=== PATIENT | male | born 1965 | race Caucasian/White ===

== ENCOUNTER 2017-08-31 12:41 | Day surgery (SDC) | payer OTHER ==
[~2017-08-31 12:41] MED LIST: BUPIVACAINE 0.25%/EPI (MDV) 50 ML VIAL INJ
[2017-08-31] MEDS ORDERED: CEFAZOLIN 2 GM/50 ML (PMX) 50 ML IVPB (15:00)
[2017-08-31] MEDS ORDERED: SOD CHLORIDE 0.9% 1,000 ML IV (15:00)
[2017-08-31] MEDS ORDERED: MIDAZOLAM 1 MG/ML 2 ML INJ (16:24)
[2017-08-31] MEDS ORDERED: PROPOFOL 20 ML (16:24)
[2017-08-31] MEDS ORDERED: ROCURONIUM 50 MG INJ (16:24)
[2017-08-31] MEDS ORDERED: CEFAZOLIN 1 GM INJ (16:24)
[2017-08-31] MEDS ORDERED: ROPIVACAINE 0.5 % 30 ML VIAL (16:26)
[2017-08-31] MEDS ORDERED: EPHEDrine SULFATE 50 MG/5 ML SYG IV (16:30)
[2017-08-31] MEDS ORDERED: ONDANSETRON 4 MG INJ IV ×2 (16:30→20:00)
[2017-08-31] MEDS ORDERED: hydrALAzine 20 MG INJ IV (16:30)
[2017-08-31] MEDS ORDERED: FENTAnyl 50 MCG/ML VIAL IV ×3 (16:30)
[2017-08-31] MEDS ORDERED: HYDROmorphONE (0.2 MG/ML) 10ML SYG IV ×3 (16:30)
[2017-08-31] MEDS ORDERED: LABETALOL HCL 20MG INJ IV (16:30)
[2017-08-31] MEDS ORDERED: METOCLOPRAMIDE 10 MG INJ IV (16:30)
[2017-08-31] MEDS ORDERED: MEPERIDINE 25 MG INJ IV (16:30)
[2017-08-31] MEDS ORDERED: OXYCODONE/ACETAMINOPHEN (5/325) TAB PO ×2 (16:30)
[2017-08-31] MEDS ORDERED: DIPHENHYDRAMINE 50 MG INJ IV (16:30)
[2017-08-31] MEDS: POLYMYXIN/BACITRACIN 1L IRRIG (18:06)
[2017-08-31] MEDS ORDERED: ACETAMINOPHEN 1000MG/100ML IV 100 ML (18:51)
[2017-08-31] MEDS ORDERED: ONDANSETRON 4 MG INJ (18:51)
[2017-08-31] MEDS ORDERED: KETOROLAC 30 MG INJ (18:51)
[2017-08-31] MEDS ORDERED: SUGAMMADEX SODIUM 200 MG/2 ML VIAL IV (18:51)
[2017-08-31] MEDS ORDERED: DEXAMETHASONE 4 MG/ML 1 ML INJ (18:51)
[2017-08-31] MEDS ORDERED: METOCLOPRAMIDE 10 MG INJ (18:51)
[2017-08-31] MEDS ORDERED: KETOROLAC 30 MG INJ IV (20:00)
[2017-08-31] MEDS ORDERED: IBUPROFEN 600 MG TAB PO (20:00)
[2017-08-31] MEDS ORDERED: HYDROCODONE/APAP (5/325) TAB PO ×2 (20:00)
[2017-08-31] MEDS ORDERED: morphine 2 MG INJ IV (20:00)
== END 2017-08-31 22:24 | disposition home or self-care (01) ==
LOC: SDS 12:41
DX: K40.20 Bilateral inguinal hernia, without obstruction or gangrene, not specified as recurrent (principal); E78.5 Hyperlipidemia, unspecified; E11.9 Type 2 diabetes mellitus without complications
CPT/HCPCS: 49650; 82962